=== PATIENT | male | born 1965 | race Caucasian/White ===

== ENCOUNTER 2016-09-25 06:52 | Emergency (ER) | payer BC ==
[2016-09-25] MEDS ORDERED: Lactated Ringers 1,000 ML IV SCH (07:30)
--- NOTE | 2016-09-25 07:54 | EDM.PDOC ---
[id number]: ABD PAIN Time Seen by Provider: 09/25/16 07:00 Source of Information: Reports: Patient, Family History Limitations: Reports: No Limitations - History of Present Illness INITIAL COMMENTS - FREE TEXT/NARRATIVE: 51-year-old male who has had upper abdominal pain waxing and waning for the past week has had increased pain over the past 2 days. Some radiation of pain in a belt like fashion around the abdomen and back. Nausea but no vomiting, bowels are normal. He feels it may be related to the initiation of lisinopril within the last few weeks. No fevers or chills. No shortness of breath or chest pain. Onset: Gradual Duration: Week(s): (Over the past week) Location: Reports: Abdomen Severity: Moderate Associated Symptoms: Reports: Loss of Appetite, Malaise, Nausea/Vomiting. Denies: Fever/Chills, Shortness of Breath Abdomen Pain Score (Numeric/FACES): 7 - Related Data Allergies Allergy/AdvReac Type Severity Reaction Status Date / Time No Known Allergies Allergy Verified 09/25/16 07:01 Home Meds: Home Meds Aspirin [Isabel Chewable] 81 mg PO DAILY 03/20/13 [History] Pindolol [Visken] 2.5 mg PO BID 02/22/15 [History] Rosuvastatin [Crestor] 5 mg PO .3XWEEK 02/22/15 [History] Saw [place] 160 mg PO BID 02/22/15 [History] Lisinopril 20 mg PO DAILY 09/25/16 [History] Past Medical History HEENT History: Reports: Glaucoma, Impaired Vision Cardiovascular History: Reports: CAD, High Cholesterol, Hypertension, [place], Stents Gastrointestinal History: Reports: Chronic Diarrhea, Other (See Below) Other Gastrointestinal History: Ulcerative colitis Genitourinary History: Reports: Renal Calculus Musculoskeletal History: Reports: Back Pain, Chronic, Fracture, Osteoarthritis Endocrine/Metabolic History: Reports: Obesity/BMI 30+ Dermatologic History: Reports: Psoriasis - Infectious Disease History Infectious Disease History: Reports: Chicken Pox - Past Surgical History Cardiovascular Surgical History: Reports: Coronary Artery Stent Musculoskeletal Surgical History: Reports: Arthroscopic Knee Social & Family History - Tobacco Use Smoking Status *Q: Never Smoker Years of Tobacco use: 20 Packs/Tins Daily: 1.5 Used Tobacco, but Quit: Yes Month Tobacco Last Used: 03/02/2009 Second Hand Smoke Exposure: No - Caffeine Use Caffeine Use: Reports: Coffee - Alcohol Use Days Per Week of Alcohol Use: 3 Number of Drinks Per Day: 4 Total Drinks Per Week: 12 - Recreational Drug Use Recreational Drug Use: Yes Recreational Drug Type: Reports: Marijuana/Hashish Recreational Drug Use Frequency: Daily ED ROS GENERAL - Review of Systems Review Of Systems: See Below Constitutional: Reports: Malaise. Denies: Fever, Chills HEENT: Reports: No Symptoms Respiratory: Denies: Shortness of Breath, Cough Cardiovascular: Denies: Chest Pain GI/Abdominal: Reports: Abdominal Pain, Nausea. Denies: Constipation, Diarrhea, Hematemesis, Hematochezia, Vomiting : Reports: No Symptoms Skin: Reports: No Symptoms Neurological: Reports: No Symptoms ED EXAM, GI/ABD - Physical Exam Exam: See Below Exam Limited By: No Limitations General Appearance: Alert, No Apparent Distress Eyes: Bilateral: Normal Appearance (No jaundice) Throat/Mouth: Normal Inspection Respiratory/Chest: No Respiratory Distress, Lungs Clear Cardiovascular: Regular Rate, Rhythm GI/Abdominal Exam: Normal Bowel Sounds, Soft, Tender (Patient reacts with tenderness to palpation in the left upper quadrant, no rebound tenderness) Course - Vital Signs Last Recorded V/S: Last Vital Signs Temp 96.8 F 09/25/16 07:12 Pulse 67 09/25/16 08:51 Resp 16 09/25/16 08:51 BP 178/107 H 09/25/16 08:51 Pulse Ox 94 L 09/25/16 08:51 - Orders/Labs/Meds Labs: Laboratory Tests 09/25/16 09/25/16 09/25/16 Range/Units 07:32 07:32 07:32 WBC 9.1 (4.5-11.0) K/uL RBC 5.58 (4.30-5.90) M/uL Hgb 15.4 H (12.0-15.0) g/dL Hct 46.3 (40.0-54.0) % MCV 83 (80-98) fL MCH 28 (27-31) pg MCHC 33 (32-36) % Plt Count 372 (150-400) K/uL Neut % (Auto) 72 H (36-66) % Lymph % (Auto) 16 L (24-44) % [place] % (Auto) 10 H (2-6) % Eos % (Auto) 1 L (2-4) % Baso % (Auto) 0 (0-1) % Sodium 140 (140-148) mmol/L Potassium 3.7 (3.6-5.2) mmol/L Chloride 104 (100-108) mmol/L Carbon Dioxide 28 (21-32) mmol/L Anion Gap 8.4 (5.0-14.0) mmol/L BUN 13 (7-18) mg/dL Creatinine 1.1 (0.8-1.3) mg/dL Est Cr Clr Drug Dosing 74.28 mL/min Estimated GFR (MDRD) > 60 (>60) Glucose 136 H (74-106) mg/dL Calcium 9.2 (8.5-10.1) mg/dL Total Bilirubin 0.5 (0.2-1.0) mg/dL AST 14 L (15-37) U/L ALT 31 (12-78) U/L Alkaline Phosphatase 88 (46-116) U/L Total Protein 7.6 (6.4-8.2) g/dL Albumin 3.6 (3.4-5.0) g/dL Globulin 4.0 H (2.3-3.5) g/dL Albumin/Globulin Ratio 0.9 L (1.2-2.2) Amylase 34 (25-115) U/L Lipase 137 (73-393) U/L Meds: Medications Discontinued Medications Generic Name Dose Route Start Last Admin Trade Name Freq PRN Reason Stop Dose Admin Lactated Ringer's 1,000 mls @ 500 mls/hr 09/25/16 07:30 09/25/16 07:41 Ringers, Lactated IV 500 mls/hr ASDIRECTED BRITNEY Administration Pantoprazole Sodium 40 mg 09/25/16 08:37 Protonix Iv IVPUSH 09/25/16 08:38 ONETIME ONE - Re-Assessments/Exams Free Text/Narrative Re-Assessment/Exam: 09/25/16 07:53 Hydration was started with lactated Ringer's at 500 mL an hour, CBC, CMP, amylase and lipase were obtained. Patient declined pain medication initially. 09/25/16 08:35 Labs all returned very reassuring, normal amylase and lipase, white count is normal in all liver enzymes were normal. I discussed setting up the patient for an EGD but he declined and wanted to try medical treatment first. He was given 40 mg of IV Protonix and will start on daily Prilosec and recheck next week if not improving satisfactorily. Departure - Departure Time of Disposition: 08:59 Disposition: Home, Self-Care 01 Condition: Good Clinical Impression: Abdominal pain Qualifiers: Abdominal location: upper abdomen, unspecified Qualified Code(s): R10.10 - Upper abdominal pain, unspecified - Discharge Information Instructions: Gastritis, Adult, [id number] Referrals: Gregorio Saleh MD [Primary Care Provider] - Forms: ED Department Discharge Care Plan Goals: Take 40 mg of Prilosec daily through the weekend, then start 20 mg a day on Thursday. Take for at least 7-10 days and then as needed. Recheck next week if not improving satisfactorily or return anytime if worsening.
[2016-09-25] MEDS ORDERED: Pantoprazole 40 MG Vial IVPUSH ONE (08:37)
[2016-09-25 08:53] VITALS: BP 178/107
== END 2016-09-25 08:59 | disposition home or self-care (01) ==
LOC: JP.ED 06:52
DX: R10.10 Upper abdominal pain, unspecified (principal); I25.10 Atherosclerotic heart disease of native coronary artery without angina pectoris; E78.00 Pure hypercholesterolemia, unspecified; I10 Essential (primary) hypertension; I25.2 Old myocardial infarction; E66.9 Obesity, unspecified; M19.90 Unspecified osteoarthritis, unspecified site; Z95.5 Presence of coronary angioplasty implant and graft; Z79.82 Long term (current) use of aspirin; Z79.899 Other long term (current) drug therapy
CPT/HCPCS: 36415; 80053; 82150; 83690; 85025; 96361; 96374; 99284; J7120

== ENCOUNTER 2016-11-20 01:57 | Emergency (ER) | payer BC ==
[2016-11-20] MEDS ORDERED: Sodium Chloride 0.9% 10 ML Syringe FLUSH PRN (02:01)
[2016-11-20] MEDS ORDERED: Aspirin 81 MG Tab.Chew PO ONE (02:05)
[2016-11-20] MEDS ORDERED: Clopidogrel 75 MG Tab PO ONE (02:06)
[2016-11-20] MEDS ORDERED: Heparin Sodium 5,000 Units/ML Vial SUBCUT ONE (02:08)
[2016-11-20] MEDS: Nitroglycerin 0.4 MG Tab.SL SL PRN ×3 (02:08→02:19)
--- NOTE | 2016-11-20 02:11 | EDM.PDOC ---
ED HPI GENERAL MEDICAL PROBLEM - General Chief Complaint: Chest Pain Stated Complaint: CHEST PAINS Time Seen by Provider: 11/20/16 02:00 Source of Information: Reports: Patient History Limitations: Reports: No Limitations - History of Present Illness INITIAL COMMENTS - FREE TEXT/NARRATIVE: 51 yo male with known CAD presents with diaphoresis and chest/shoulder pain since about midnight. Had some "tingling" before that in the shoulders. No SOB or nausea. Was in bed when sx's began. Took 1 baby aspirin before arrival. Onset: Today Onset Date: 11/20/16 Onset Time: 00:00 Duration: Hour(s): Location: Reports: Chest Quality: Reports: Ache Severity: Moderate Improves with: Reports: None Worsens with: Reports: None Context: Reports: Other (Hx of CAD) Associated Symptoms: Reports: Diaphoresis Treatments GRUBBER: Reports: Aspirin (81 mg po) Mid-Sternal Pain Score (Numeric/FACES): 4 - Related Data Allergies Allergy/AdvReac Type Severity Reaction Status Date / Time No Known Allergies Allergy Verified 09/25/16 07:01 Home Meds: Home Meds Aspirin [Isabel Chewable] 81 mg PO DAILY 03/20/13 [History] Pindolol [Visken] 2.5 mg PO BID 02/22/15 [History] Rosuvastatin [Crestor] 5 mg PO .3XWEEK 02/22/15 [History] Saw [place] 160 mg PO BID 02/22/15 [History] Lisinopril 20 mg PO DAILY 09/25/16 [History] Past Medical History HEENT History: Reports: Glaucoma, Impaired Vision Cardiovascular History: Reports: CAD, High Cholesterol, Hypertension, [place], Stents Gastrointestinal History: Reports: Chronic Diarrhea, Other (See Below) Other Gastrointestinal History: Ulcerative colitis Genitourinary History: Reports: Renal Calculus Musculoskeletal History: Reports: Back Pain, Chronic, Fracture, Osteoarthritis Endocrine/Metabolic History: Reports: Obesity/BMI 30+ Dermatologic History: Reports: Psoriasis - Infectious Disease History Infectious Disease History: Reports: Chicken Pox - Past Surgical History Cardiovascular Surgical History: Reports: Coronary Artery Stent Musculoskeletal Surgical History: Reports: Arthroscopic Knee Social & Family History - Tobacco Use Smoking Status *Q: Never Smoker Years of Tobacco use: 20 Packs/Tins Daily: 1.5 Used Tobacco, but Quit: Yes Month Tobacco Last Used: 03/02/2009 Second Hand Smoke Exposure: No - Caffeine Use Caffeine Use: Reports: Coffee - Alcohol Use Days Per Week of Alcohol Use: 3 Number of Drinks Per Day: 4 Total Drinks Per Week: 12 - Recreational Drug Use Recreational Drug Use: Yes Recreational Drug Type: Reports: Marijuana/Hashish Recreational Drug Use Frequency: Daily ED ROS GENERAL - Review of Systems Review Of Systems: See Below Constitutional: Reports: No Symptoms HEENT: Reports: No Symptoms Respiratory: Reports: No Symptoms Cardiovascular: Reports: Chest Pain Endocrine: Reports: No Symptoms GI/Abdominal: Reports: No Symptoms : Reports: No Symptoms Musculoskeletal: Reports: No Symptoms Skin: Reports: Diaphoresis Neurological: Reports: No Symptoms Psychiatric: Reports: No Symptoms ED EXAM, GENERAL - Physical Exam Exam: See Below Exam Limited By: No Limitations General Appearance: Alert, WD/WN, Mild Distress Eye Exam: Bilateral Eye: Normal Inspection Ears: Normal External Exam, Normal Canal, Hearing Grossly Normal Ear Exam: Bilateral Ear: Auricle Normal, Canal Normal Nose: Normal Inspection, Normal Mucosa, No Blood Throat/Mouth: Normal Inspection, Normal Lips, Normal Teeth, Normal Oropharynx, Normal Voice, No Airway Compromise Head: Atraumatic, Normocephalic Neck: Normal Inspection, Supple Respiratory/Chest: No Respiratory Distress, Lungs Clear, Normal Breath Sounds, No Accessory Muscle Use Cardiovascular: Regular Rate, Rhythm, No Edema GI/Abdominal: Normal Bowel Sounds, Soft, Non-Tender, No Distention Extremities: Normal Inspection, Normal Range of Motion, Non-Tender, Pedal Edema (trace below the knees) Neurological: Alert, Oriented, CN II-XII Intact, Normal Cognition, No Motor/ Sensory Deficits Psychiatric: Normal Affect, Normal Mood Skin Exam: Warm, Dry, Intact, Normal Color, No Rash Lymphatic: No Adenopathy EKG INTERPRETATION EKG Date: 11/20/16 Time: 02:10 Rhythm: NSR Rate (Beats/Min): 54 [place]: Normal P-Wave: Present QRS: Normal ST-T: Elevated (inferior leads) QT: Normal Comparison: Change From Previous EKG (acute inferior OR) Course - Vital Signs Text/Narrative:: Dr. Mccullough at [facility] accepting in transfer at 0220h(cardiology), ALS transfer pending. Last Recorded V/S: Last Vital Signs Temp 35.3 C 11/20/16 02:04 Pulse 57 L 11/20/16 02:04 Resp 16 11/20/16 02:04 BP 172/99 H 11/20/16 02:08 Pulse Ox 99 11/20/16 02:04 - Orders/Labs/Meds Orders: Active Orders 24 hr Category Date Time Status Cardiac Monitoring [RC] .As Directed Care 11/20/16 02:01 Ordered EKG Documentation Completion [RC] ASDIRECTED Care 11/20/16 02:00 Ordered Chest 1V Frontal [CR] Stat Exams 11/20/16 02:04 Ordered BASIC METABOLIC PANEL,BMP [CHEM] Stat Lab 11/20/16 02:04 Ordered TROPONIN I [CHEM] Stat Lab 11/20/16 02:04 Ordered UA W/MICROSCOPIC [URIN] Stat Lab 11/20/16 02:04 Uncollected Nitroglycerin [Nitrostat] Med 11/20/16 02:05 Ordered 0.4 mg SL Q5M PRN Sodium Chloride 0.9% [Saline Flush] Med 11/20/16 02:01 Ordered 10 ml FLUSH ASDIRECTED PRN Saline Lock Insert [OM.PC] Routine Oth 11/20/16 02:01 Ordered EKG 12 Lead [EK] Routine Ther 11/20/16 02:00 Ordered Medication Orders Nitroglycerin (Nitrostat) 0.4 mg SL Q5M PRN PRN Reason: Chest Pain Last Admin: 11/20/16 02:08 Dose: 0.4 mg Sodium Chloride (Saline Flush) 10 ml FLUSH ASDIRECTED PRN PRN Reason: Keep Vein Open Last Admin: 11/20/16 02:09 Dose: 10 ml Labs: Laboratory Tests 11/20/16 Range/Units 02:00 WBC 9.0 (4.5-11.0) K/uL RBC 5.29 (4.30-5.90) M/uL Hgb 14.8 (12.0-15.0) g/dL Hct 44.6 (40.0-54.0) % MCV 84 (80-98) fL MCH 28 (27-31) pg MCHC 33 (32-36) % Plt Count 435 H (150-400) K/uL Meds: Medications Generic Name Dose Route Start Last Admin Trade Name Freq PRN Reason Stop Dose Admin Nitroglycerin 0.4 mg 11/20/16 02:05 11/20/16 02:08 Nitrostat SL 0.4 mg Q5M PRN Administration Chest Pain Sodium Chloride 10 ml 11/20/16 02:01 11/20/16 02:09 Saline Flush FLUSH 10 ml ASDIRECTED PRN Administration Keep Vein Open Discontinued Medications Generic Name Dose Route Start Last Admin Trade Name Freq PRN Reason Stop Dose Admin Aspirin 243 mg 11/20/16 02:05 11/20/16 02:08 Aspirin PO 11/20/16 02:06 243 mg ONETIME ONE Administration Clopidogrel Bisulfate 600 mg 11/20/16 02:06 11/20/16 02:08 Plavix PO 11/20/16 02:07 600 mg ONETIME ONE Administration Heparin Sodium (Porcine) 5,000 units 11/20/16 02:08 Heparin Sodium SUBCUT 11/20/16 02:09 ONETIME ONE Departure - Departure Time of Disposition: 02:40 Disposition: DC/Tfer to Acute Hospital 02 Reason for Transfer *Q: Primary PCI Indicated Condition: Serious Clinical Impression: Acute inferior myocardial infarction Referrals: Gregorio Saleh MD [Primary Care Provider] - Forms: ED Department Discharge - My Orders Last 24 Hours: My Active Orders 11/20/16 02:00 EKG Documentation Completion [RC] ASDIRECTED EKG 12 Lead [EK] Routine 11/20/16 02:01 Cardiac Monitoring [RC] .As Directed Sodium Chloride 0.9% [Saline Flush] 10 ml FLUSH ASDIRECTED PRN Saline Lock Insert [OM.PC] Routine 11/20/16 02:04 Chest 1V Frontal [CR] Stat BASIC METABOLIC PANEL,BMP [CHEM] Stat TROPONIN I [CHEM] Stat UA W/MICROSCOPIC [URIN] Stat 11/20/16 02:05 Nitroglycerin [Nitrostat] 0.4 mg SL Q5M PRN - Assessment/Plan Last 24 Hours: My Active Orders 11/20/16 02:00 EKG Documentation Completion [RC] ASDIRECTED EKG 12 Lead [EK] Routine 11/20/16 02:01 Cardiac Monitoring [RC] .As Directed Sodium Chloride 0.9% [Saline Flush] 10 ml FLUSH ASDIRECTED PRN Saline Lock Insert [OM.PC] Routine 11/20/16 02:04 Chest 1V Frontal [CR] Stat BASIC METABOLIC PANEL,BMP [CHEM] Stat TROPONIN I [CHEM] Stat UA W/MICROSCOPIC [URIN] Stat 11/20/16 02:05 Nitroglycerin [Nitrostat] 0.4 mg SL Q5M PRN
[2016-11-20] MEDS ORDERED: Ondansetron 4 MG/2 ML SDV IVPUSH ONE (02:21)
[2016-11-20] MEDS ORDERED: Furosemide 40 MG/4 ML VIAL IVPUSH ONE (02:30)
[2016-11-20 02:37] VITALS: BP 122/77
--- NOTE | 2016-11-20 09:16 | CR ---
Chest 1V Frontal HISTORY: chest pain COMPARISON: 10/28/2010 FINDINGS: There is poor inspiration causing crowding of pulmonary markings. No acute infiltrate is id entified. Heart size is felt to be within normal limits for the AP technique and incomplete inspirati on. No vascular redistribution or pleural fluid is seen. There are degenerative changes along the tho racic spine. IMPRESSION: Port inspiration causes some crowding of the pulmonary markings. No acute cardiopulmonary disease can be identified.
== END 2016-11-20 02:45 ==
LOC: JP.ED 01:57
DX: I21.19 ST elevation (STEMI) myocardial infarction involving other coronary artery of inferior wall (principal); I11.0 Hypertensive heart disease with heart failure; I50.9 Heart failure, unspecified; I25.10 Atherosclerotic heart disease of native coronary artery without angina pectoris; E78.00 Pure hypercholesterolemia, unspecified; I25.2 Old myocardial infarction; M19.90 Unspecified osteoarthritis, unspecified site; Z68.31 Body mass index [BMI] 31.0-31.9, adult; E66.9 Obesity, unspecified; Z95.5 Presence of coronary angioplasty implant and graft; Z98.890 Other specified postprocedural states; Z79.82 Long term (current) use of aspirin; Z79.899 Other long term (current) drug therapy
CPT/HCPCS: 36415; 71010; 80048; 84484; 85027; 93005; 96374; 96375; 99285; A9270; J1644; J1940; J2405; J7050

== ENCOUNTER 2018-06-20 10:38 | Emergency (ER) | payer BC ==
[2018-06-20 11:02] VITALS: BP 160/106
--- NOTE | 2018-06-20 11:40 | EDM.PDOC ---
ED HPI GENERAL MEDICAL PROBLEM - General Chief Complaint: Gastrointestinal Problem Stated Complaint: DIZZINESS,VOMITING Time Seen by Provider: 06/20/18 11:39 Source of Information: Reports: Patient History Limitations: Reports: No Limitations - History of Present Illness INITIAL COMMENTS - FREE TEXT/NARRATIVE: This man says that all morning long he has had the sensation of spinning. This gotten so bad at times that it's caused him to vomit. Turning his head left or right doesn't seem to bother it. Has not had any chest pain or palpitations does have a history of an PR in the past. He's not having any kind of weakness or problems with coordination never had problems with vertigo before area - Related Data Allergies Allergy/AdvReac Type Severity Reaction Status Date / Time No Known Allergies Allergy Verified 06/20/18 10:51 Home Meds: Home Meds Aspirin [Isabel Chewable] 81 mg PO DAILY 03/20/13 [History] Rosuvastatin [Crestor] 5 mg PO .3XWEEK 02/22/15 [History] Saw [place] 160 mg PO BID 02/22/15 [History] Lisinopril 20 mg PO DAILY 09/25/16 [History] Past Medical History HEENT History: Reports: Glaucoma, Impaired Vision Cardiovascular History: Reports: CAD, High Cholesterol, Hypertension, [place], Stents Gastrointestinal History: Reports: Chronic Diarrhea, Other (See Below) Other Gastrointestinal History: Ulcerative colitis Genitourinary History: Reports: Renal Calculus Musculoskeletal History: Reports: Back Pain, Chronic, Fracture, Osteoarthritis Endocrine/Metabolic History: Reports: Obesity/BMI 30+ Dermatologic History: Reports: Psoriasis - Infectious Disease History Infectious Disease History: Reports: Chicken Pox - Past Surgical History Cardiovascular Surgical History: Reports: Coronary Artery Stent Musculoskeletal Surgical History: Reports: Arthroscopic Knee Social & Family History - Tobacco Use Smoking Status *Q: Never Smoker - Caffeine Use Caffeine Use: Reports: Coffee ED ROS GENERAL - Review of Systems Review Of Systems: See Below Constitutional: Reports: No Symptoms HEENT: Reports: Vertigo Respiratory: Reports: No Symptoms Cardiovascular: Reports: No Symptoms Endocrine: Reports: No Symptoms GI/Abdominal: Reports: No Symptoms ED EXAM, GENERAL - Physical Exam Exam: See Below Exam Limited By: No Limitations General Appearance: Alert, WD/WN, Mild Distress (Patient gets nauseated with different body positions.) Eye Exam: Bilateral Eye: EOMI, Nystagmus (No definite nystagmus with him sitting still), PERRL Ears: Normal TMs Throat/Mouth: Normal Oropharynx Head: Atraumatic Neck: Supple Respiratory/Chest: Lungs Clear Cardiovascular: Regular Rate, Rhythm Extremities: Normal Inspection Neurological: Alert, Oriented, CN II-XII Intact, Normal Cognition, Normal Gait, Normal Reflexes, No Motor/Sensory Deficits, Other (No Romberg sign. Very steady) Psychiatric: Normal Affect Skin Exam: Warm, Dry Course - Vital Signs Last Recorded V/S: Last Vital Signs Temp 36.3 C 06/20/18 10:59 Pulse 66 06/20/18 10:59 Resp 14 06/20/18 10:59 BP 160/106 H 06/20/18 10:59 Pulse Ox 98 06/20/18 10:59 - Orders/Labs/Meds Meds: Medications Discontinued Medications Generic Name Dose Route Start Last Admin Trade Name Freq PRN Reason Stop Dose Admin Ondansetron HCl 8 mg 06/20/18 12:01 06/20/18 12:07 Zofran Odt PO 06/20/18 12:02 8 mg ONETIME ONE Administration - Re-Assessments/Exams Free Text/Narrative Re-Assessment/Exam: 06/20/18 12:52 On [place] testing the patient became severely nauseated when I just laid him back to position him in order to allow his head hanging off the bed. He did sees rotational nystagmus with the head tilted to the right. Kyara maneuver was performed from the right side. Patient did get quite a bit of relief from that. He said afterwards she still has just a little bit of dizziness but it is much better Departure - Departure Time of Disposition: 12:53 Disposition: Home, Self-Care 01 Condition: Fair Clinical Impression: Benign paroxysmal positional vertigo of right ear - Discharge Information Referrals: Gregorio Saleh MD [Primary Care Provider] - Forms: ED Department Discharge Additional Instructions: If the dizziness continues try using the lorazepam 1 mg, one half or one tablet 3 times per day. This medication can cause sedation and impair driving so use with caution. If the problem continues you can be referred to physical therapy to have the maneuver repeated.
[2018-06-20] MEDS ORDERED: Ondansetron 4 MG Tab.DIS PO ONE (12:01)
== END 2018-06-20 13:27 | disposition home or self-care (01) ==
LOC: JP.ED 10:38
DX: H81.11 Benign paroxysmal vertigo, right ear (principal); I25.10 Atherosclerotic heart disease of native coronary artery without angina pectoris; E78.00 Pure hypercholesterolemia, unspecified; I10 Essential (primary) hypertension; I25.2 Old myocardial infarction; Z95.5 Presence of coronary angioplasty implant and graft; Z79.899 Other long term (current) drug therapy; Z79.82 Long term (current) use of aspirin
CPT/HCPCS: 99283; A9270

== ENCOUNTER 2021-11-01 17:20 | Emergency (ER) | payer BC ==
[2021-11-01] MEDS ORDERED: Ondansetron 4 MG/2 ML SDV IVPUSH ONE (17:41)
[2021-11-01] MEDS ORDERED: HYDROmorphone 0.5 MG/0.5 ML Syringe IVPUSH ONE (17:41)
[2021-11-01] MEDS ORDERED: Sodium Chloride 0.9% 1,000 ML IV ONE (17:41)
[2021-11-01 18:11] LABS: ESTIMATED GFR 64 mL/min (>60); TROPONIN I HIGH SENSITIVITY 14.9 pg/mL (<=60.3)
[2021-11-01] MEDS ORDERED: Iopamidol 612 MG/ML 100 ML Bottle IV SCH (18:45)
[2021-11-01] MEDS ORDERED: Sodium Chloride 0.9% 75 ML IV SCH (18:45)
[2021-11-01] MEDS ORDERED: Prochlorperazine 10 MG/2 ML SDV IVPUSH ONE (19:12)
[2021-11-01] MEDS ORDERED: HYDROmorphone 1 MG/ML Syringe IVPUSH ONE (19:51)
[2021-11-01 20:21] VITALS: BP 195/125; PULSE 72
== END 2021-11-01 21:19 | disposition home or self-care (01) ==
LOC: JP.ED 17:20
DX: I71.4 Abdominal aortic aneurysm, without rupture (principal); I10 Essential (primary) hypertension; I25.10 Atherosclerotic heart disease of native coronary artery without angina pectoris; E78.00 Pure hypercholesterolemia, unspecified; E66.9 Obesity, unspecified; Z68.26 Body mass index [BMI] 26.0-26.9, adult; Z79.899 Other long term (current) drug therapy
CPT/HCPCS: 36415; 74177; 80053; 83605; 83690; 84484; 85025; 86140; 96361; 96374; 96375; 96376; 99284; J0780; J1170; J2405; J3490; J7030; Q9967

== ENCOUNTER → 2021-12-12 | Day surgery (SDC) | payer BC ==
[~2021-12-12] MED LIST: Sodium Chloride 0.9% 10 ML Syringe FLUSH ONE
== END ==
LOC: JP.SDS 06:00
PROVIDERS: ATTEND Ophthalmology
DX: H26.9 Unspecified cataract (principal); H21.542 Posterior synechiae (iris), left eye; E78.00 Pure hypercholesterolemia, unspecified
CPT/HCPCS: 66982; J3490

== ENCOUNTER 2022-04-15 16:36 | Observation (INO) | payer BC ==
[2022-04-15] MEDS ORDERED: Sodium Chloride 0.9% 10 ML Syringe FLUSH PRN (17:28)
[2022-04-15] MEDS ORDERED: Ketorolac 30 MG/ML SDV IVPUSH ONE (17:29)
[2022-04-15 17:47] LABS: ESTIMATED GFR 64 mL/min (>60); TROPONIN I HIGH SENSITIVITY 20.4 pg/mL (<=60.3)
[2022-04-15] MEDS ORDERED: Sodium Chloride 0.9% 75 ML IV SCH (18:00)
[2022-04-15] MEDS ORDERED: Iopamidol 755 Mg/ML 100 ML Bottle IV SCH (18:00)
[2022-04-15] MEDS ORDERED: fentaNYL 100 MCG/2 ML SDV IVPUSH ONE (19:12)
[2022-04-15 20:01] LABS: CORONAVIRUS COVID-19 NAA NEGATIVE (NEGATIVE)
[2022-04-15] MEDS ORDERED: Ondansetron 4 MG/2 ML SDV IVPUSH STA (20:30)
[2022-04-15] MEDS ORDERED: Acetaminophen 325 MG Tab PO PRN (20:53)
[2022-04-15] MEDS ORDERED: Ondansetron 4 MG Tab.DIS PO PRN (20:53)
[2022-04-15] MEDS ORDERED: Ondansetron 4 MG/2 ML SDV IV PRN (20:53)
[2022-04-15] MEDS ORDERED: Melatonin 3 MG Tab PO PRN (20:53)
[2022-04-15] MEDS ORDERED: fentaNYL 100 MCG/2 ML SDV IVPUSH PRN (20:53)
[2022-04-15] MEDS ORDERED: Pantoprazole 40 MG Vial IV ONE (21:00)
[2022-04-15] MEDS: Sodium Chloride 0.9% 1,000 ML IV SCH (21:21)
[2022-04-15] MEDS: Potassium Chloride 10 MEQ in Premix Bag 1 BAG IV SCH ×2 (21:30→23:46)
[2022-04-15] MEDS: amLODIPine 5 MG Tab PO SCH (21:45)
[2022-04-15] MEDS: Carvedilol 12.5 MG Tab PO SCH (21:45)
[2022-04-15] MEDS: Lisinopril 20 MG Tab PO SCH (21:45)
[2022-04-16] MEDS: Potassium Chloride 10 MEQ in Premix Bag 1 BAG IV SCH ×2 (01:18→02:47)
[2022-04-16] MEDS ORDERED: fentaNYL 100 MCG/2 ML SDV ONE (07:04)
[2022-04-16] MEDS ORDERED: Midazolam 1 MG/ML 2 ML SDV ONE (07:04)
[2022-04-16] MEDS ORDERED: Propofol 200 MG/20 ML SDV ONE (07:04)
[2022-04-16] MEDS: Sodium Chloride 0.9% 1,000 ML IV SCH (09:47)
[2022-04-16] MEDS: amLODIPine 5 MG Tab PO SCH (11:05)
[2022-04-16] MEDS: Carvedilol 12.5 MG Tab PO SCH (11:05)
[2022-04-16] MEDS: Lisinopril 20 MG Tab PO SCH (11:05)
[2022-04-16 14:26] VITALS: BP 137/87; PULSE 63
[2022-04-16] MEDS ORDERED: Rosuvastatin 10 MG Tab PO SCH (21:00)
== END 2022-04-16 15:00 | disposition home or self-care (01) ==
LOC: JP.ED 16:36 → JP.MS 20:05
PROVIDERS: ADMIT Surgery; ATTEND Surgery
DX: K29.70 Gastritis, unspecified, without bleeding (principal); K44.9 Diaphragmatic hernia without obstruction or gangrene; K29.80 Duodenitis without bleeding; N43.3 Hydrocele, unspecified; I72.2 Aneurysm of renal artery; I10 Essential (primary) hypertension; K21.9 Gastro-esophageal reflux disease without esophagitis; E78.00 Pure hypercholesterolemia, unspecified; Z95.5 Presence of coronary angioplasty implant and graft; I25.2 Old myocardial infarction; E66.9 Obesity, unspecified; M19.90 Unspecified osteoarthritis, unspecified site; M54.9 Dorsalgia, unspecified; G89.29 Other chronic pain; I25.10 Atherosclerotic heart disease of native coronary artery without angina pectoris; Z79.899 Other long term (current) drug therapy; Z79.82 Long term (current) use of aspirin; Z20.822 Contact with and (suspected) exposure to COVID-19; Z98.890 Other specified postprocedural states
CPT/HCPCS: 0241U; 36415; 43239; 71046; 74177; 80048; 80053; 83605; 83690; 83735; 84484; 85025; 85027; 87081; 88305; 88342; 93010; 96361; 96365; 96366; 96375; 96376; 99284; 99285; A9270; C9113; G0378; J1885; J2250; J2405; J2704; J3010; J3480; J3490; J7030; Q0162; Q9967; 96374

== ENCOUNTER 2023-05-19 19:06 | Emergency (ER) | payer BC | END 2023-05-19 19:07 | disposition EXP | LOC: JP.ED 19:06 | DX: I46.9 Cardiac arrest, cause unspecified (principal); I10 Essential (primary) hypertension; I25.2 Old myocardial infarction; I25.10 Atherosclerotic heart disease of native coronary artery without angina pectoris; M19.90 Unspecified osteoarthritis, unspecified site; E66.9 Obesity, unspecified; Z79.82 Long term (current) use of aspirin; Z79.899 Other long term (current) drug therapy | CPT/HCPCS: 92950; 99285; 99285-25 ==